=== PATIENT | male | born 1970 | race Two or more races ===

== ENCOUNTER 2020-04-23 14:17 | Emergency (ER) | payer OTHER ==
[~2020-04-23] VITALS: Ht 170.2 cm; Wt 70.3 kg
== END 2020-04-23 21:07 | disposition home or self-care (01) ==
LOC: ER 14:17
DX: N13.2 Hydronephrosis with renal and ureteral calculous obstruction (principal); Z03.818 Encounter for observation for suspected exposure to other biological agents ruled out